=== PATIENT | male | born 1995 | race Caucasian/White ===

== ENCOUNTER 2023-05-03 16:19 | Emergency (ER) | payer BC, SELFPAY ==
[2023-05-03 16:26] VITALS: BP 166/90; PULSE 97; RESP 16; TEMP 37.1; O2SAT 98; BMI 28.5
--- NOTE | 2023-05-03 16:31 | ED_ITS ---
HPI - Abdominal Pain 2 General: Chief Complaint: Abdominal Pain Stated Complaint: ABD pain N/D Time Seen by Provider: 05/03/23 16:24 Source: patient Mode of arrival: ambulatory History of Present Illness: [age]-year-old male presents emergency r oom complaining of abdominal cramping and pain with nausea has been going on for several weeks or months now. Last several days its gotten worse he takes [id number] omeprazole with that which has not seem to help. He denies any hematochezia melena hematemesis or coffee-ground emesis he is not noticed particular foods that make it better or worse. MD elicited complaint: abdominal pain Pertinent past history: none Onset (ago): minute(s) Quality: cramping Exacerbating factors: nothing Relieving factors: nothing Associated Symptoms: Denies anorexia, belching, bloating, change in bowel habits, change in stool character, chills, coffee ground emesis, constipation, GI cramping, diarrhea, dyspepsia, dysuria, excessive flatus, fever(s), heartburn, hematochezia, hematuria, hematemesis, fecal incontinence, loose stools, melena, nausea, poor appetite, syncope, vomiting and other Review of Systems 2 Const: Denies: fever(s) or chills Card: Denies: syncope Resp: Denies: dyspnea GI: Denies: nausea, vomiting, hematemesis, coffee ground emesis, heartburn, diarrhea, constipation, bloating, GI cramping, belching, excessive flatus, fecal incontinence, change in bowel habits, change in stool character, hematochezia, melena or other : Denies: dysuria or hematuria Musc: Denies: neck pain or back pain Skin/Breast: Denies: rash Physical Exam 2 Const: COMMON NORMALS: no acute distress GENERAL APPEARANCE: cooperative and comfortable ORIENTATION/CONSCIOUSNESS: Yes awake, Yes oriented to person, Yes oriented to place and Yes oriented to time HENMT: COMMON NORMALS: normocephalic, atraumatic and hearing grossly normal bilaterally HEAD & SCALP: normocephalic and atraumatic Resp: COMMON NORMALS: normal respiratory effort, No retractions, No use of accessory muscles and clear to auscultation bilaterally AUSCULTATION: clear to auscultation bilaterally Cardio: COMMON NORMALS: regular rate, regular rhythm and No murmurs present (Cardio) RATE: regular rate RHYTHM: regular rhythm GI: COMMON NORMALS: Soft to palpation and No hepatosplenomegaly present A USCULTATION: Yes normoactive bowel sounds PALPATION: Yes Soft to palpation, No Tenderness to palpation present (GI), No Guarding due to palpation present (GI) and Yes No hepatosplenomegaly present Extremity: COMMON NORMALS: normal to inspection, capillary refill normal, no clubbing, cyanosis or edema, no calf tenderness and no pedal edema Neuro: SENSORIUM/ORIENTATION: Yes oriented to person, Yes oriented to place and Yes oriented to time Skin: COMMON NORMALS: no rashes or lesions noted GENERAL SKIN EXAM: no rashes or lesions noted Course 2 Vital Signs: Vital signs: Vital Signs Temperature 98.7 F 05/03/23 16:26 Pulse Rate 89 05/03/23 18:41 Respiratory Rate 16 05/03/23 16:26 Blood Pressure 166/90 05/03/23 16:26 Pulse Oximetry 95 05/03/23 18:41 Oxygen Delivery Me thod Room Air 05/03/23 16:26 MDM - Abdominal Pain Medical Decision Making Labs reviewed no significant finding. Will have the patient start Protonix twice daily for 14 days and then daily. If has persistent symptoms he will need to see his primary care doctor consideration for further evaluation possibly including EGD. Medical Records I reviewed the patient's medical records. Lab Data I reviewed the patient's lab results. 05/03/23 16:41 05/03/23 16:41 Labs/Radiology: Laboratory Results WBC 9.05 10^3/uL (3.29-11.43) 05/03/23 16:41 RBC 5.88 10^6/uL (3.85-5.65) H 05/03/23 16:41 Hgb 17.40 g/dL (11.27-16.99) H 05/03/23 16:41 Hct 49.4 % (37-53) 05/03/23 16:41 MCV 84.0 fl (82-101) 05/03/23 16:41 MCH 29.6 pg (27-33) 05/03/23 16:41 MCHC 35.2 g/dL (30-55) 05/03/23 16:41 RDW 11.9 % (12.1-15.1) L 05/03/23 16:41 Plt Count 273 10^3/cmm (157-399) 05/03/23 16:41 MPV 9.5 fL (7.4-10.4) 05/03/23 16:41 Neut % (Auto) 76.0 % 05/03/23 16:41 Lymph % (Auto) 16.8 % 05/03/23 16:41 Wolfe % (Auto) 6.5 % 05/03/23 16:41 Eos % (Auto) 0.2 % 05/03/23 16:41 Baso % (Auto) 0.3 % 05/03/23 16:41 Neut # (Auto) 6.87 10^3/uL (1.8-7.7) 05/03/23 16:41 Lymph # (Auto) 1.5 10^3/uL (0.8-4.8) 05/03/23 16:41 Wolfe # (Auto) 0.6 10^3/uL (0.2-0.9) 05/03/23 16:41 Eos # (Auto) 0.0 10^3/uL (0.0-0.8) 05/03/23 16:41 Baso # (Auto) 0.0 10^3/uL (0.0-0.1) 05/03/23 16:41 Nucleated RBC % (auto) 0 % 05/03/23 16:41 Nucleated RBCs # 0.0 /100WBC 05/03/23 16:41 Sodium 140 mmol/L (136-145) 05/03/23 16:41 Potassium 3.9 mmol/L (3.5-5.1) 05/03/23 16:41 Chloride 100 mmol/L (98-107) 05/03/23 16:41 Carbon Dioxide 26 mmol/L (22-29) 05/03/23 16:41 Anion Gap 17.9 (5-19) 05/03/23 16:41 BUN 10 mg/dL (6-20) 05/03/23 16:41 Creatinine 0.8 mg/dL (0.7-1.2) 05/03/23 16:41 GFR Calculation 115.1 mL/min (90-130) 05/03/23 16:41 Glucose 102 mg/dL (65-115) 05/03/23 16:41 Calculated Osmolality 289 mOsm/kg (285-295) 05/03/23 16:41 Calcium 10.1 mg/dL (8.5-10.5) 05/03/23 16:41 Total Bilirubin 1.3 mg/dL (0.15-1.2) H 05/03/23 16:41 AST 17 U/L (0-40) 05/03/23 16:41 ALT 25 U/L (0-41) 05/03/23 16:41 Alkaline Phosphatase 73 U/L (40-130) 05/03/23 16:41 Total Protein 8.4 g/dL (6.6-8.7) 05/03/23 16:41 Albumin 5.0 g/dL (3.5-5.2) 05/03/23 16:41 Globulin 3.4 g/dL (1.3-4.6) 05/03/23 16:41 Lipase 24 U/L (13-60) 05/03/23 16:41 Urine Color Yellow (Yellow) 05/03/23 17:50 Urine Appearance Clear (CLEAR) 05/03/23 17:50 Urine pH 6 (5-7) 05/03/23 17:50 Ur Specific Mcqueeney 1.010 (1.005-1.030) 05/03/23 17:50 Urine Protein Neg (Negative) 05/03/23 17:50 Urine Glucose (UA) Norm (Normal) 05/03/23 17:50 Urine Ketones 1+ (Negative) H 05/03/23 17:50 Urine Blood Neg (Negative) 05/03/23 17:50 Urine Nitrate Negative (Negative) 05/03/23 17:50 Urine Bilirubin Neg (Negative) 05/03/23 17:50 Urine Urobilinogen Norm mg/dL (Negative) 05/03/23 17:50 Ur Leukocyte Esterase Negative (Negative) 05/03/23 17:50 All radiology interpretation(s) finalized by discharge Discharge Plan Discharge Patient Disposition: Home Clinical Impression: Gastroesophageal reflux disease Condition: Stable Prescriptions: New Protonix 40 mg tablet,delayed release (DR/EC) 40 mg PO BID 14 Days Qty: 45 0RF Rx Instructions: 1 p.o. twice daily x 14 days then 1 p.o. daily Discharge Orders: Discharge ED (Routine); Ordered 05/03/23 Ordered By: Sudarshan Fields Referrals: Jose Carlos James, [Family Provider] - Discharge Diet: Usual diet Discharge Activity: Resume usual activity Patient Instructions: Diet for Stomach Ulcers and Gastritis (ED), GERD (Gastroesophageal Reflux Disease) (ED), Opioid Safety, Pain Management Activity Restrictions/Additional Instructions: Thank you for choosing [facility] for your healthcare needs today. Please realize this is an emergency room and that we are providing you with a medical screening exam and this may not be complete and all inclusive of all the testing and or work up that you may need to determine your ailment or severity of your illness. It is very important that you follow up as instructed or that you return to the Emergency Department should you have concerns or if your condition changes or worsens in any way. Coding Level of Care Code ED Autopsy Pathologist for Lona Hoffmann
[2023-05-03] MEDS: lidocaine 2% viscous 15 ML, aluminum-mag hydrox-simethicon 30 ML, sucralfate oral liq 1 GM PO (16:48)
[2023-05-03 16:54] LABS: Basophils % 0.3 %; Eosinophils % 0.2 %; Hematocrit 49.4 % (37-53); Lymphocytes # 1.5 10^3/uL (0.8-4.8); Lymphocytes % 16.8 %; Mean Corpuscular HGB Conc 35.2 g/dL (30-55); Mean Corpuscular Hemoglobin 29.6 pg (27-33); Mean Platelet Volume 9.5 fL (7.4-10.4); Monocytes # 0.6 10^3/uL (0.2-0.9); Monocytes % 6.5 %; Neutrophils # 6.87 10^3/uL (1.8-7.7); Nucleated Red Blood Cells % 0 %; Platelet Count 273 10^3/cmm (157-399); Red Blood Count 5.88 10^6/uL (3.85-5.65); Red Cell Distribution Width 11.9 % (12.1-15.1); White Blood Count 9.05 10^3/uL (3.29-11.43)
[2023-05-03] MEDS: sodium chloride 0.9% 1,000 ML 999 ML IV (16:55)
[2023-05-03 17:06] LABS: Alanine Aminotransferase 25 U/L (0-41); Alkaline Phosphatase 73 U/L (40-130); Anion Gap 17.9 (5-19); Aspartate Amino Transferase 17 U/L (0-40); Blood Urea Nitrogen 10 mg/dL (6-20); Calcium 10.1 mg/dL (8.5-10.5); Carbon Dioxide 26 mmol/L (22-29); Chloride 100 mmol/L (98-107); Globulin 3.4 g/dL (1.3-4.6); Glomerular Filtration Rate 115.1 mL/min (90-130); Glucose 102 mg/dL (65-115); Lipase 24 U/L (13-60); Osmolality Calculated 289 mOsm/kg (285-295); Potassium 3.9 mmol/L (3.5-5.1); Sodium 140 mmol/L (136-145); Total Bilirubin 1.3 mg/dL (0.15-1.2); Total Protein 8.4 g/dL (6.6-8.7)
[2023-05-03 17:57] LABS: Add Urine Microscopic? NO; Charge for UA Resulting for Rev
[2023-05-03 18:19] LABS: Bilirubin Urine Neg (Negative); Blood Urine Neg (Negative); Glucose Urine UA Norm (Normal); Ketones Urine 1+ (Negative); Leukocyte Esterase Urine Negative (Negative); Nitrate Urine Negative (Negative); Protein Urine Neg (Negative); Urine Appearance Clear (CLEAR); Urine Color Yellow (Yellow); Urobilinogen Urine Norm (Negative); pH Urine 6 (5-7)
[2023-05-03 18:41] VITALS: PULSE 89; O2SAT 95
== END 2023-05-03 18:42 | disposition home or self-care (01) ==
PROVIDERS: Physician Assistant; Emergency Provider Family Medicine; Family Provider Family Medicine
DX: K21.9 Gastro-esophageal reflux disease without esophagitis (principal)
CPT/HCPCS: 36415; 80053; 81003; 83690; 85025; 96360; 99284; J7030